=== PATIENT | male | born 1995 ===

== ENCOUNTER 2020-11-22 04:41 | Emergency (ER) | payer SELFPAY ==
[~2020-11-22] VITALS: Ht 182.9 cm; Wt 90.9 kg
[2020-11-22 04:51] VITALS: TEMP 101.1
[2020-11-22 05:38] VITALS: BP 144/87; PULSE 80
== END 2020-11-22 05:38 | disposition home or self-care (01) ==
LOC: COL.ER 04:41
DX: U07.1 COVID-19 (principal)